=== PATIENT | male | born 1950 | race Caucasian/White ===

== ENCOUNTER 2021-11-11 13:00 | Day surgery (SDC) | payer MEDICARE, BC ==
[~2021-11-11] VITALS: Ht 172.7 cm; Wt 85.0 kg
[2021-11-11] MEDS ORDERED: LORazepam 0.5 MG tablet PO PRN (13:25)
[2021-11-11] MEDS ORDERED: normal saline 1,000 ML IV SCH (13:25)
[2021-11-11] MEDS ORDERED: diphenhydrAMINE 25mg capsule PO PRN (13:25)
[2021-11-11 14:00] VITALS: BP 127/70
[2021-11-11] MEDS ORDERED: CITA40TA30 PO (14:19)
[2021-11-11] MEDS ORDERED: ROSU20TA2 PO (14:27)
[2021-11-11] MEDS ORDERED: ASPI-1071 PO (14:27)
[2021-11-11] MEDS ORDERED: heparin 1,000unit/ml 10ml vial 10 ML ONE (15:07)
[2021-11-11] MEDS ORDERED: verapamil 2.5 mg/ml inj IV ONE (15:07)
[2021-11-11] MEDS ORDERED: iohexol 350MG/ML 100ml bottle IV ONE ×2 (15:07→16:23)
[2021-11-11] MEDS ORDERED: fentaNYL/PF 50MCG/1 ML 2ML syringe ONE (15:07)
[2021-11-11] MEDS ORDERED: midazolam 1 mg/ML 2ml injection ONE (15:07)
[2021-11-11] MEDS ORDERED: LIDOcaine 1%/PF 5ML 10 MG/ML VIAL ONE (15:07)
[2021-11-11] MEDS ORDERED: nitroGLYCERIN-Tridil 50MG/D5W 250 ML IV ONE (15:08)
[2021-11-11] MEDS ORDERED: clopidogrel 300mg tablet ONE (16:34)
[2021-11-11] MEDS ORDERED: aspirin 325mg tablet ONE (16:34)
[2021-11-11] MEDS ORDERED: atropine 0.1mg/ml 10ml syringe ONE (16:47)
[2021-11-11 17:12] VITALS: BP 122/59
[2021-11-11 17:22] VITALS: BP 122/59
[2021-11-11] MEDS ORDERED: HYDROcodone/acetaminophen 10/325mg tab PO PRN (17:30)
[2021-11-11] MEDS ORDERED: HYDROcodone/acetaminophen 5mg/325mg tablet PO PRN (17:30)
[2021-11-11 17:36] VITALS: BP 128/69
[2021-11-11 18:08] VITALS: BP 114/64
[2021-11-11 18:22] VITALS: BP 119/64
== END 2021-11-11 19:14 | disposition home or self-care (01) ==
LOC: SSTAY O 13:00
PROVIDERS: ATTEND Internal Medicine Interventional Cardiology
DX: R94.39 Abnormal result of other cardiovascular function study (principal); I25.10 Atherosclerotic heart disease of native coronary artery without angina pectoris; Z79.899 Other long term (current) drug therapy; Z98.890 Other specified postprocedural states; Z79.82 Long term (current) use of aspirin
CPT/HCPCS: 93005; 93458; 99152; 99153; C1725; C1751; C1769; C1894; C9600; J1644; J2250; J3010; J3490; J7030; Q0163; Q9967; A4620; A5120; A6258; A6402; C1874; J0461